=== PATIENT | male | born 2000 | race Caucasian/White ===

== ENCOUNTER 2024-06-13 13:28 | Emergency (ER) | payer OTHER ==
[2024-06-13 15:07] LABS: SARS-CoV-2 Antigen CONTROL BLUE LINE VIS/BG OK; SARS-CoV-2 Antigen Rapid Res Negative (Negative)
--- NOTE | 2024-06-13 15:31 | ER ---
Nurse's Notes [facility] Name: Ankit Lawrence Age: 24 yrs Sex: Male : 2000 Arrival Date: 06/13/2024 Time: 13:28 Bed 12 Private MD: Diagnosis: Rash and other nonspecific skin eruption;Acute tonsillitis, unspecified Presentation: 06/13 13:56 Chief complaint: Patient states: generalized rash and itching onset yesterday. pt also cm10 reports throat pain and shortness of breath. respirations even and unlabored in triage. Coronavirus screen: Client denies travel out of the [place] in the last 14 days. Ebola Screen: Patient denies travel to an Ebola-affected area in the 21 days before illness onset. No symptoms or risks identified at this time. Initial Sepsis Screen: Does the patient meet any 2 criteria? No. Patient's initial sepsis screen is negative. Does the patient have a suspected source of infection? No. Patient's initial sepsis screen is negative. Risk Assessment: Do you want to hurt yourself or someone else? Patient reports no desire to harm self or others. Onset of symptoms was June 13, 2024. 13:56 Method Of Arrival: Ambulatory cm10 13:56 Acuity: ATIF 4 cm10 Triage Assessment: 13:57 General: Appears in no apparent distress. comfortable, Behavior is calm, cooperative. cm10 Neuro: No deficits noted. Level of Consciousness is awake, alert, obeys commands, Oriented to person, place, time, situation, Appropriate for age. Respiratory: No deficits noted. Airway is patent Respiratory effort is even, unlabored, Respiratory pattern is regular, symmetrical. Historical: - Allergies: 13:57 No Known Allergies; cm10 - Home Meds: 13:57 None [Active]; cm10 - PMHx: 13:57 None; cm10 - PSHx: 13:57 None; cm10 - Immunization history:: Adult Immunizations up to date. - Infectious Disease History:: Denies. - Social history:: Smoking status: Patient reports the use of cigarette tobacco products, smokes one-half pack cigarettes per day. Screenin:55 [facility] ED Fall Risk Assessment (Adult) History of falling in the last 3 months, jb4 including since admission No falls in past 3 months (0 pts) Confusion or Disorientation No (0 pts) Intoxicated or Sedated No (0 pts) Impaired Gait No (0 pts) Mobility Assist Device Used No (0 pt) Altered Elimination No (0 pt) Score/Fall Risk Level 0 - 2 = Low Risk Oriented to surroundings, Maintained a safe environment. Abuse screen: Denies threats or abuse. Abuse screen: Denies threats or abuse. Nutritional screening: No deficits noted. Tuberculosis screening: No symptoms or risk factors identified. Assessment: 15:55 Reassessment: Patient appears in no apparent distress at this time. Patient and/or jb4 family updated on plan of care and expected duration. Pain level reassessed. Patient is alert, oriented x 3, equal unlabored respirations, skin warm/dry/pink. Pain: Denies pain. Respiratory: Airway is patent Respiratory effort is even, unlabored, Respiratory pattern is regular, symmetrical. Vital Signs: 13:56 BP 139 / 99; Pulse 78; Resp 14; Temp 97.8(TE); Pulse Ox 100% on R/A; Weight 58.97 kg; cm10 Height 6 ft. 1 in. ; Pain 0/10; 13:56 Body Mass Index 17.15 (58.97 kg, 185.42 cm) cm10 13:56 Pain Scale: Adult cm10 ED Course: 13:33 Patient arrived in ED. mr 13:57 Triage completed. cm10 13:57 Arm band placed on right wrist. Patient placed in waiting room. cm10 14:14 Yasmany Lemus FNP-C is PHCP. dr5 14:14 Jesus Shelley MD is Attending Physician. dr5 15:03 Chest Pa And Lat (2 Views) XRAY In Process Unspecified. EDMS 15:55 Patient has correct armband on for positive identification. Bed in low position. Call jb4 light in reach. Side rails up X 1. Provided Education on: discharge instructions.. 15:55 No provider procedures requiring assistance completed. Patient did not have IV access jb4 during this emergency room visit. Administered Medications: No medications were administered Medication: 15:55 VIS not applicable for this client. jb4 Outcome: 15:31 Discharge ordered by . dr5 15:55 Discharged to home ambulatory, jb4 15:55 Condition: stable 15:55 Discharge instructions given to patient, Instructed on discharge instructions, follow up and referral plans. medication usage, Demonstrated understanding of instructions, follow-up care, medications, 15:57 Patient left the ED. jb4 Signatures: Dispatcher [employer] EDMS Carina Valenzuela, Cedric Davis, RN RN jb4 Judy Reich RN RN cm10 Yasmany Lemus, CERTIFIED FIRST ASSISTANT-C CERTIFIED FIRST ASSISTANT-Cdr5
--- NOTE | 2024-06-13 15:32 | EDPHYS ---
Physician Documentation [facility] Name: Ankit Lawrence Age: 24 yrs Sex: Male : 2000 Arrival Date: 06/13/2024 Time: 13:28 Bed 12 Private MD: ED Physician Jesus Shelley HPI: 06/13 17:52 This 24 yrs old Male presents to ER via Ambulatory with complaints of dr5 Breathing Difficulty, Rash. 17:52 Patient is a 24-year-old male with no past medical history coming in with sore throat, dr5 congestion, and rash to right arm.. Historical: - Allergies: 13:57 No Known Allergies; cm10 - Home Meds: 13:57 None [Active]; cm10 - PMHx: 13:57 None; cm10 - PSHx: 13:57 None; cm10 - Immunization history:: Adult Immunizations up to date. - Infectious Disease History:: Denies. - Social history:: Smoking status: Patient reports the use of cigarette tobacco products, smokes one-half pack cigarettes per day. ROS: 17:52 Constitutional: as per hpi dr5 Exam: 17:52 Constitutional: This is a well developed, well nourished patient who is awake, alert, dr5 and in no acute distress. Head/Face: Normocephalic, atraumatic. Eyes: Pupils equal round and reactive to light, extra-ocular motions intact. Lids and lashes normal. Conjunctiva and sclera are non-icteric and not injected. Cornea within normal limits. Periorbital areas with no swelling, redness, or edema. Chest/axilla: Normal chest wall appearance and motion. Nontender with no deformity. No lesions are appreciated. Cardiovascular: Regular rate and rhythm with a normal S1 and S2. Normal PMI, no JVD. No pulse deficits. Respiratory: Lungs have equal breath sounds bilaterally, clear to auscultation. No rales, rhonchi or wheezes noted. No increased work of breathing, no retractions or nasal flaring. Back: No spinal tenderness. No costovertebral tenderness. Full range of motion. Skin: Warm, dry with normal turgor. Normal color with no rashes, no lesions, and no evidence of cellulitis. 17:52 Neuro: Awake and alert, GCS 15, oriented to person, place, time, and situation. Cranial nerves II-XII grossly intact. Motor strength 5/5 in all extremities. Sensory grossly intact. Cerebellar exam normal. Normal gait. 17:52 ENT: External ear(s): are unremarkable, Ear canal(s): are normal, TM's: are normal, no acute changes, Nose: is normal, Mouth: is normal, Posterior pharynx: no acute changes, Airway: normal, Tonsils: are normal in appearance, swelling, erythema, that is moderate, Vital Signs: 13:56 BP 139 / 99; Pulse 78; Resp 14; Temp 97.8(TE); Pulse Ox 100% on R/A; Weight 58.97 kg; cm10 Height 6 ft. 1 in. ; Pain 0/10; 13:56 Body Mass Index 17.15 (58.97 kg, 185.42 cm) cm10 13:56 Pain Scale: Adult cm10 MDM: 14:14 Medical Screening Exam initiated dr5 17:52 Differential diagnosis: Shingles, Tonsillitis, Strep. Antibiotic administration: The dr5 patient is discharged and will get outpatient antibiotics, Amoxicillin. Immunization status:. Data reviewed: vital signs, nurses notes, lab test result(s). Care significantly affected by the following Social Determinants of Health: Poor access to healthcare and/or lack of insurance, Poor access to transportation, Problems related to employment. 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 ED course: will cover for tonsillitis with amoxicillin. Recommended increasing hydration, alternate Tylenol Motrin as needed for pain. Will give steroids to help with rash to right arm. Follow-up with primary care doctor this week. All questions answered. Return to ER for worsening conditions.. 06/13 14:15 Order name: SARS RAPID; Complete Time: 15:18 dr5 06/13 14:15 Order name: Influenza Screen (a \T\ B); Complete Time: 15:18 dr5 12/15 15:31 Order name: Strep dr5 06/13 14:15 Order name: Chest Pa And Lat (2 Views) XRAY; Complete Time: 15:43 dr5 Administered Medications: No medications were administered Disposition Summary: 06/13/24 15:31 Discharge Ordered Notes: Location: Home dr5 Condition: Stable dr5 Diagnosis - Rash and other nonspecific skin eruption dr5 - Acute tonsillitis, unspecified dr5 Followup: dr5 - With: Emergency Department - When: As needed - Reason: Worsening of condition Followup: dr5 - With: Private Physician - When: 1 - 2 days - Reason: Recheck today's complaints, Continuance of care, Re-evaluation by your physician Discharge Instructions: - Discharge Summary Sheet dr5 - Tonsillitis dr5 Forms: - Medication Reconciliation Form dr5 - Antibiotic Education dr5 - Patient Portal Instructions dr5 - Leadership Thank You Letter dr5 Prescriptions: - Amoxicillin 875 mg Oral Tablet - take 1 tablet ORAL route every 12 hours for 10 days; 20 tablet; Refills: 0, dr5 Product Selection Permitted - Prednisone 20 mg Oral Tablet - take 2 tablets ORAL route once daily for 5 days; 10 tablet; Refills: 0, Product dr5 Selection Permitted Signatures: Dispatcher [employer] Judy Garcia RN RN cm10 Yasmany Lemus, ENGLISH AS A SECOND LANGUAGE TEACHER-C ENGLISH AS A SECOND LANGUAGE TEACHER-Cdr5
--- NOTE | 2024-06-13 15:36 | RAD REPORT ---
Procedure: Chest Pa And Lat (2 Views) HISTORY: Cough COMPARISON: none FINDINGS: The lungs appear clear of acute infiltrate. Lungs are markedly hyperaerated. No significant pleural effusion noted. The heart is normal size. IMPRESSION: Markedly hyperaerated lungs may indicate reactive airway disease
[2024-06-13 16:12] VITALS: BP 139/99; TEMP 97.8; O2SAT 100
== END 2024-06-13 15:57 | disposition home or self-care (01) ==
LOC: ER 13:28
DX: R21 Rash and other nonspecific skin eruption (principal); J03.90 Acute tonsillitis, unspecified; F17.210 Nicotine dependence, cigarettes, uncomplicated; Z11.52 Encounter for screening for COVID-19
CPT/HCPCS: 36415; 71046; 87070; 87081; 87804; 87811; 99282